=== PATIENT | female | born 1965 | race Caucasian/White ===

== ENCOUNTER 2017-06-21 20:10 | Emergency (ER) | payer OTHER ==
[~2017-06-21] VITALS: Ht 160 cm; Wt 63.5 kg
[2017-06-21 21:53] VITALS: BP 166/72
== END 2017-06-21 21:56 | disposition home or self-care (01) ==
LOC: M.ERS 20:10
DX: M79.644 Pain in right finger(s) (principal); Z88.5 Allergy status to narcotic agent; Z88.2 Allergy status to sulfonamides

== ENCOUNTER 2020-12-13 17:58 | Emergency (ER) | payer OTHER ==
[~2020-12-13] VITALS: Ht 160 cm; Wt 77.1 kg
[2020-12-13 18:20] LABS: HEMATOCRIT 37.7 % (37.0-47.0); HEMOGLOBIN 13.1 gm/dL (12.0-15.0); MCH 33.8 pg (26.0-34.0); MCHC 34.8 g/dL (28.0-37.0); MCV 97.3 fL (80.0-100.0); MPV 7.3 fl. (7.2-11.1); RBC 3.88 mil/uL (4.20-5.00); RDW-CV 13.3 % (10.5-14.5); WBC 8.9 thou/uL (4.0-11.0)
[2020-12-13 18:26] LABS: CALCIUM 9.5 mg/dL (8.5-10.1); CREATININE 0.7 mg/dL (0.6-1.3); POTASSIUM 4.1 mmol/L (3.5-5.1)
[2020-12-13 18:31] LABS: ALBUMIN 3.5 g/dL (3.4-5.0); TOTAL BILIRUBIN 0.2 mg/dL (<0.1-1.0); TOTAL PROTEIN 7.2 g/dL (6.4-8.2)
[2020-12-13 19:34] VITALS: BP 139/81
--- NOTE | 2020-12-14 12:13 | EKG ---
[place] [address] ELECTROCARDIOGRAM REPORT Name: MUNIARTILAUREN Carina Room: [facility]#: [id number] Admission: 12/13/20 Attend Phys: Discharge: 12/13/20 Date of : 61 Date of Service: 12/13/201801 Report #: [id number] THIS REPORT FOR: //name// [facility] ED Test Date: 2020-12-13 Test Time: 18:02:32 Pat Name: LAUREN LOMBARDO Department: Room: Gender: F Work [employer] Support [employer]ist: : [id number] Requested By: Ferdinand Baum Order Number: [id number] MD: Casa Rao Measurements Intervals Lindsay Rate: 74 P: 54 UT: 138 QRS: 72 QRSD: 80 T: 16 QT: 389 QTc: 432 Interpretive Statements Sinus rhythm Borderline T wave abnormalities No previous ECG available for comparison Electronically Signed On 12-14-2020 12:13:30 CDT by Casa Rao [email or web address] <ELECTRONICALLY SIGNED> By: Joey Rao MD, [facility] 12/14/20 1213 01 01 Joey Rao MD, [facility] /EPI
== END 2020-12-13 19:35 | disposition home or self-care (01) ==
LOC: M.ERS 17:58
PROVIDERS: Emergency Medicine
DX: R07.89 Other chest pain (principal); Z88.0 Allergy status to penicillin; Z88.5 Allergy status to narcotic agent